=== PATIENT | male | born 1980 | race Caucasian/White ===

== ENCOUNTER 2017-10-19 16:11 | Emergency (ER) | payer OTHER ==
[~2017-10-19] VITALS: Ht 177.8 cm; Wt 126.8 kg
[2017-10-19 16:15] VITALS: TEMP 36.8; Ht 177.8 cm; Wt 126.8 kg
[2017-10-19] MEDS ORDERED: DiphenhydrAMINE HCL 50 MG/ML VIAL IV STA (16:30)
[2017-10-19] MEDS ORDERED: DEXAMETHASONE INJ 10 MG in SYRINGE 0 ML IV STA (16:30)
[2017-10-19 16:49] LABS: BASO % 0.2 %; BASO ABS # 0.02 K/uL (0-0.2); EOS % 1.7 %; EOS ABS # 0.17 K/uL (0-0.5); HEMOGLOBIN 14.6 g/dL (14.0-18.0); IG# 0.02 K/uL (0.00-0.02); LYMPH % 22.9 %; LYMPH ABS # 2.28 K/uL (1.2-3.4); MEAN CELL VOLUME 90.3 fL (80-100); MEAN CORPUSCULAR HEMOGLOBIN 30.7 pg (25-34); MEAN PLATELET VOLUME 10.7 fL (7.4-10.4); MONO % 5.3 %; MONO ABS # 0.53 K/uL (0.11-0.59); NEUT % 69.7 %; NEUT ABS # 6.92 K/uL (1.4-6.5); PLATELET COUNT 199 K/uL (130-400); RED CELL DISTRIBUTION WIDTH CV 14.2 % (11.5-14.5); WHITE BLOOD COUNT 9.94 K/uL (4.8-10.8)
[2017-10-19 17:01] LABS: PTT PATIENT 25.7 SECONDS (21.0-31.0)
[2017-10-19 17:02] LABS: CALCIUM 9.2 mg/dl (8.5-10.1); CREATININE 1.05 mg/dl (0.60-1.40); POTASSIUM 4.1 mmol/L (3.5-5.1)
[2017-10-19] MEDS ORDERED: METH4PAK PO (18:10)
--- NOTE | 2017-10-19 18:11 | EMERGENCY ROOM VISIT NOTE ---
History First contact with patient: 16:22 Chief Complaint: RASH Stated Complaint: HIVES History of Present Illness The patient is a 37 year old male who presents to the Emergency Room via private vehicle with complaints of "hives". The patient states that yesterday he began with some hives on his extremities. He has never had this before. He is unable to identify any new or different changes in his life. He states that no recent antibiotics, no fever, no tick bites, no insect bites, no new change of detergents or anything else he is able to identify. He notes that there is no trouble breathing. He states that he is currently working in the area and is from [place]. He states that earlier today shortly after eating food at [employer] about 1-1/2-2 hours ago he felt itchy on his back and noticed large welts/hives. This prompted his visit here today. He notes he has no food or other allergies that he is aware of. Review of Systems A complete 10-point Review of Systems was discussed with the patient, with pertinent positives and negatives listed in the History of Present Illness. All remaining Review of Systems questions can be considered negative unless otherwise specified. Past Medical/Surgical History No pertinent. Family History No pertinent. Social History Smoking Status: Current Some Day Smoker Patient is employed locally at this current time and will be returning home to [place] soon. Current/Historical Medications Scheduled Methylprednisolone (Medrol Dosepak), 0 PO DAILY Physical Exam Vital Signs Date Time Temp Pulse Resp B/P (MAP) Pulse Ox O2 Delivery O2 Flow Rate FiO2 10/19/17 18:17 72 17 144/76 96 10/19/17 16:15 36.8 82 19 142/87 98 Room Air Physical Exam VITAL SIGNS - Vital signs and nursing notes were reviewed. Stable. Afebrile GENERAL -31-year-old male appearing his stated age who is in no acute distress. Breathing on his own. Communicates well with provider and answers questions appropriately. SKIN -numerous erythematous slightly raised lesions consistent with hives of varying sizes diffusely over the patient's body. HEAD - NC/AT. EYES - Sclera anicteric. EARS - No deformities of external structures noted on gross examination bilaterally. NOSE - Midline and without cyanosis. No epistaxis or purulent drainage noted. Septum midline without deviation or septal hematoma noted. MOUTH/OROPHARYNX - Without perioral cyanosis. Airway is widely patent. No evidence of anaphylaxis. LUNGS - Chest wall symmetric without accessory muscle use, intercostals retractions, or central cyanosis. Minimal wheezing noted. CARDIAC - RRR with S1/S2. No murmur, rubs, or gallops appreciated. NEUROLOGIC - Cranial nerves II through XII grossly intact. Sensory intact to light touch throughout. PSYCH - A&O, and cooperates fully with examiner. Pt is very pleasant and interacts well with examiner. Medical Decision & Procedures Laboratory Results 10/19/17 16:35 Red Blood Count 4.76, Mean Corpuscular Volume 90.3, Mean Corpuscular Hemoglobin 30.7, Mean Corpuscular Hemoglobin Concent 34.0, Mean Platelet Volume 10.7, Neutrophils (%) (Auto) 69.7, Lymphocytes (%) (Auto) 22.9, Monocytes (%) (Auto) 5.3, Eosinophils (%) (Auto) 1.7, Basophils (%) (Auto) 0.2, Neutrophils # (Auto) 6.92, Lymphocytes # (Auto) 2.28, Monocytes # (Auto) 0.53, Eosinophils # (Auto) 0.17, Basophils # (Auto) 0.02 10/19/17 16:35 Test 10/19/17 16:35 White Blood Count 9.94 K/uL (4.8-10.8) Red Blood Count 4.76 M/uL (4.7-6.1) Hemoglobin 14.6 g/dL (14.0-18.0) Hematocrit 43.0 % (42-52) Mean Corpuscular Volume 90.3 fL (80-100) Mean Corpuscular Hemoglobin 30.7 pg (25-34) Mean Corpuscular Hemoglobin Concent 34.0 g/dl (32-36) Platelet Count 199 K/uL (130-400) Mean Platelet Volume 10.7 fL (7.4-10.4) Neutrophils (%) (Auto) 69.7 % Lymphocytes (%) (Auto) 22.9 % Monocytes (%) (Auto) 5.3 % Eosinophils (%) (Auto) 1.7 % Basophils (%) (Auto) 0.2 % Neutrophils # (Auto) 6.92 K/uL (1.4-6.5) Lymphocytes # (Auto) 2.28 K/uL (1.2-3.4) Monocytes # (Auto) 0.53 K/uL (0.11-0.59) Eosinophils # (Auto) 0.17 K/uL (0-0.5) Basophils # (Auto) 0.02 K/uL (0-0.2) RDW Standard Deviation 47.0 fL (36.4-46.3) RDW Coefficient of Variation 14.2 % (11.5-14.5) Immature Granulocyte % (Auto) 0.2 % Immature Granulocyte # (Auto) 0.02 K/uL (0.00-0.02) Prothrombin Time 10.7 SECONDS (9.0-12.0) Prothromb Time International Ratio 1.0 (0.9-1.1) Activated Partial Thromboplast Time 25.7 SECONDS (21.0-31.0) Partial Thromboplastin Ratio 1.0 Anion Gap 6.0 mmol/L (3-11) Est Creatinine Clear Calc Drug Dose 130.0 ml/min Estimated GFR () 105.3 Estimated GFR (Non- 90.9 BUN/Creatinine Ratio 14.5 (10-20) Calcium Level 9.2 mg/dl (8.5-10.1) Lyme Disease IgG Antibody NEG (NEG) Lyme Disease IgM Antibody NEG (NEG) Medications Administered Medications (Trade) Dose Ordered Sig/Rossana Route Start Time Stop Time Status Last Admin Dose Admin Dexamethasone Sodium Phosphate 10 mg/Syringe 2.5 ml @ 1 mls/min NOW STAT IV 10/19/17 16:30 10/19/17 16:33 DC 10/19/17 16:52 1 MLS/MIN Diphenhydramine HCl (Benadryl Inj) 25 mg NOW STAT IV 10/19/17 16:30 10/19/17 16:33 DC 10/19/17 16:41 25 MG Medical Decision Patient was seen and evaluated as above in room D2. Review was performed of nursing notes and vital signs. After obtaining a thorough history and physical examination the above work up was performed. He presents to us today with hives. No evidence of anaphylaxis. Vital signs stable. I did elect to obtain IV access, and recheck basic labs. Lyme testing negative. No evidence of concerning leukocytosis or anemia. No emergent metabolic abnormality. At this time the etiology of the hives were unclear. Could either be from contact or some type of systemic ingestion. I question if this is a food related allergy. He is to record all foods/chemicals he comes into contact with. He was reevaluated after given Decadron and Benadryl and was feeling much better. The hives were nearly gone. I believe he is stable for outpatient management with a Medrol Dosepak and is to follow with the family doctor. He noted that he does not have one, and will obtain one through calling his insurance company soon as possible. He is to return with worsening. He was educated upon risk of rebound reaction. The patient was educated upon management, had questions answered prior to discharge, and was discharged home in good condition. In the evaluation and treatment of this patient the following differential diagnoses were entertained: Hives, anaphylaxis, Lyme disease, mononucleosis, among others per Impression Primary Impression: Hives Departure Information Dispostion Home / Self-Care Condition GOOD Prescriptions Methylprednisolone (MEDROL DOSEPAK) 4 Mg Clint 0 PO DAILY, #1 PKT Prov: Manish Villagomez PA-C 10/19/17 Referrals No Doctor, Assigned (PCP) Patient Instructions My [facility] Additional Instructions You have been treated in the Emergency Department for an Allergic Reaction. You have been treated and monitored in the Emergency Department appropriately. You should take Benadryl (diphenhydramine) 25 mg orally every 6 hours for the next 7 days. This medication is [id number] and you will NOT need a prescription to purchase this at your local pharmacy. You should continue taking the Benadryl for the COMPLETION of the 7 days. This is to prevent a rebound allergic reaction in the event that allergens are still present in your system. You should take Zantac (ranitidine) 75 mg orally once daily for the next 7 days. This medication is [id number] and you will NOT need a prescription to purchase this at your local pharmacy. You should continue taking the Zantac for the COMPLETION of the 7 days. This is to prevent a rebound allergic reaction in the event that allergens are still present in your system. You have been prescribed a Medrol Dosepak. Take this medication as prescribed. You may begin this tomorrow at 6 PM since you received the IV dose here which lasts 24 hours. You should take the COMPLETE 6-day course of this medication. This is an anti-inflammatory medicine that will help to minimize your symptoms. As with every Emergency Department visit, you should follow-up with your primary care provider in 2-3 days for reevaluation. Return to the Emergency Department if your current symptoms worsen despite treatment course outlined above, or if you develop any of the following symptoms : wheezing, tongue or face swelling, tightness in your throat, shortness of breath, or fainting.
[2017-10-19 18:17] VITALS: BP 144/76; PULSE 72; O2SAT 96
== END 2017-10-19 18:18 | disposition home or self-care (01) ==
LOC: C.EDB 16:13 → C.EDD 18:18
DX: L50.9 Urticaria, unspecified (principal); Z72.0 Tobacco use